=== PATIENT | female | born 2000 | race Caucasian/White ===

== ENCOUNTER 2024-05-18 13:08 | Outpatient (CLI) | payer OTHER, SELFPAY | END 2024-05-18 13:09 | disposition home or self-care (01) | PROVIDERS: PCP Pediatrics Adolescent Medicine; Visit Provider Nurse Practitioner | DX: R10.2 Pelvic and perineal pain (principal); Z97.5 Presence of (intrauterine) contraceptive device | CPT/HCPCS: 76830; 76856 ==